=== PATIENT | female | born 1950 | race Caucasian/White ===

== ENCOUNTER 2017-08-24 08:44 | Outpatient (CLI) | payer MEDICARE, MEDICAID | END 2017-08-24 08:45 | disposition home or self-care (01) | LOC: BICULT 08:44 | PROVIDERS: ATTEND Internal Medicine | DX: Z12.31 Encounter for screening mammogram for malignant neoplasm of breast (principal); E04.1 Nontoxic single thyroid nodule | CPT/HCPCS: 76536; 77063 ==

== ENCOUNTER 2017-11-13 11:15 | Outpatient (CLI) | payer MEDICARE, MEDICAID ==
[2017-11-13] MEDS ORDERED: ISOVUE-370 76%-LOCM 1 ML ONE (12:48)
== END 2017-11-13 11:16 | disposition home or self-care (01) ==
LOC: BICCT 11:15
PROVIDERS: ATTEND Internal Medicine Hematology & Oncology
DX: C49.4 Malignant neoplasm of connective and soft tissue of abdomen (principal); K76.89 Other specified diseases of liver; N28.1 Cyst of kidney, acquired; D73.4 Cyst of spleen; E04.2 Nontoxic multinodular goiter
CPT/HCPCS: 71260; 74177

== ENCOUNTER 2018-02-25 17:07 | Emergency (ER) | payer MEDICARE, MEDICAID ==
[2018-02-25 17:47] LABS: #Eosinphils 0.2 thou/uL (0.0-0.7); #Lymphocytes 1.5 thou/uL (1.20-3.40); #Monocytes 0.8 thou/uL (0.11-0.59); #Neutrophils 4.8 thou/uL (1.40-6.50); %Basophils 0.3 % (0.0-1.0); %Eosinophils 2.4 % (0.0-10.0); %Lymphocytes 20.9 % (21.0-51.0); %Monocytes 10.9 % (0.0-10.0); %Neutrophils 65.4 % (42.0-75.0); Hemoglobin 11.1 g/dL (12.0-16.0); Mean Corpuscular HGB CONC 36.3 g/dL (32.0-36.0); Mean Corpuscular Hemoglobin 33.8 pg (27.0-31.0); Mean Platelet Volume 8.3 fL (7.4-10.4); Platelet Count 119 thou/uL (130-400); RBC Distribution Width 11.5 % (11.5-14.5); Red Blood Cell (RBC) Count 3.27 mill/uL (4.20-5.40); White Blood Cell (WBC) Count 7.3 thou/uL (4.8-10.8)
[2018-02-25 18:02] LABS: ALT (SGPT) 21 U/L (8-55); AST (SGOT) 23 U/L (5-34); Alkaline Phosphatase 116 U/L (40-150); Anion Gap 13 mmol/L (10-20); BUN (Urea Nitrogen) 27 mg/dL (9.8-20.1); Bilirubin, Total 0.4 mg/dL (0.2-1.2); Calc. Creatinine Clearance 0 mL/min (70-130); Calcium 9.2 mg/dL (7.8-10.44); Carbon Dioxide 24 mmol/L (23-31); Chloride 108 mmol/L (98-107); Estimated GFR-MDRD 44; Globulin 2.6 g/dL (2.4-3.5); Glucose 192 mg/dL (80-115); Potassium 3.8 mmol/L (3.5-5.1); Protein, Total 6.6 g/dL (6.0-8.3); Sodium 141 mmol/L (136-145)
[2018-02-25 18:27] LABS: Bilirubin Negative (Negative); Blood, Urine Moderate (Negative); Glucose, Urine (Dipstick) 250 mg/dL (Negative); Leukocyte Negative (Negative); Nitrite Negative (Negative); Protein, Urine (Dipstick) 100 mg/dL (Neg-Trace); Urobilinogen 0.2 mg/dL (0.2-1.0); pH, Urine 5.5 (5.0-9.0)
[2018-02-25 18:32] LABS: Specific Gravity, Urine 1.029 (1.002-1.036)
[2018-02-25 18:33] LABS: Clarity Clear (Clear)
[2018-02-25 18:43] LABS: Bacteria/HPF Rare-Few HPF (None Seen); RBC/HPF 0-3 HPF (0-3); Squamous Epithelial 0-3 HPF (0-3); WBC/HPF 0-3 HPF (0-3)
[2018-02-25 18:44] LABS: Crystals/HPF 1+ CA OXALATE HPF (Negative); Hyaline Casts/LPF 0-3 HYALINE CAST LPF (0-3 Hyaline)
--- NOTE | 2018-02-25 18:53 | CT ---
CT HEAD WITHOUT CONTRAST: INDICATIONS: Dizziness. History of gastric cancer. Headaches. COMPARISON: Head CT of 03/20/2015. TECHNIQUE: Multiple axial tomograms obtained through the head without IV enhancement. FINDINGS: The ventricles remain normal in size and position and appear unchanged from the prior exam. Mild cor tical volume loss appears stable. There is no evidence of intracranial mass or hemorrhage. Mild chr onic ischemic white matter changes are seen. No evidence of acute cortical infarct. IMPRESSION: No acute process identified. POS: [facility]
[2018-02-25 19:07] LABS: CKMB 3.4 ng/mL (0-6.6); Troponin I Less than 0.010 ng/mL (< 0.028)
--- NOTE | 2018-02-25 19:39 | RAD ---
PORTABLE CHEST: HISTORY: Dizziness. FINDINGS: The lungs are clear. The heart and mediastinum are unremarkable. IMPRESSION: No acute abnormality identified. POS: [facility]
== END 2018-02-25 21:45 | disposition home or self-care (01) ==
LOC: ERS 17:07
DX: R42 Dizziness and giddiness (principal); E11.9 Type 2 diabetes mellitus without complications; E78.5 Hyperlipidemia, unspecified; F32.9 Major depressive disorder, single episode, unspecified; I10 Essential (primary) hypertension; I25.10 Atherosclerotic heart disease of native coronary artery without angina pectoris; Z79.4 Long term (current) use of insulin; Z79.899 Other long term (current) drug therapy; Z79.82 Long term (current) use of aspirin; Z85.00 Personal history of malignant neoplasm of unspecified digestive organ
CPT/HCPCS: 36415; 70450; 71045; 80053; 81003; 81015; 82553; 84484; 85025; 93005

== ENCOUNTER 2018-05-14 07:46 | Outpatient (CLI) | payer MEDICARE, MEDICAID | END 2018-05-14 07:47 | disposition home or self-care (01) | LOC: BICCT 07:46 | PROVIDERS: ATTEND Internal Medicine Hematology & Oncology | DX: C49.4 Malignant neoplasm of connective and soft tissue of abdomen (principal); R91.8 Other nonspecific abnormal finding of lung field; K76.89 Other specified diseases of liver; N28.1 Cyst of kidney, acquired; E04.2 Nontoxic multinodular goiter | CPT/HCPCS: 71260; 74177; 82565 ==

== ENCOUNTER 2018-07-19 11:31 | Outpatient (CLI) | payer MEDICARE, MEDICAID ==
--- NOTE | 2018-07-19 14:24 | RAD ---
ABDOMEN TWO VIEWS: History: Abdominal pain. FINDINGS/IMPRESSION: The bowel gas pattern is unremarkable. No free air or differential fluid levels are seen. There are d egenerative changes in the spine. No suspicious calcifications identified. POS: [facility]
== END 2018-07-19 11:32 | disposition home or self-care (01) ==
LOC: BICRAD 11:31
PROVIDERS: ATTEND Internal Medicine
DX: R10.84 Generalized abdominal pain (principal); M47.899 Other spondylosis, site unspecified
CPT/HCPCS: 36415; 74019; 80053; 80061; 81001; 82306; 83540; 85025

== ENCOUNTER 2018-10-23 07:32 | Outpatient (CLI) | payer MEDICARE, MEDICAID ==
--- NOTE | 2018-10-23 09:22 | CT ---
CT OF CHEST, ABDOMEN, AND PELVIS PERFORMED WITH INTRAVENOUS CONTRAST ENHANCEMENT: Comparison: 05-14-18, 11-13-17, 06-26-17 History: Patient is status post GI stromal tumor removal and has been on chemotherapy. Follow up. FINDINGS: There is a continued progression of the predominately ground glass parenchymal changes seen in both l ower lobes with some changes in the region of the lingula. The changes have not increased in size but overall density of the parenchymal change, particularly in the posterior basal segment has continued to gradually increase. There is no discrete nodule associated with these findings. There is a calcif ied granuloma in the left lung base. There is no significant mediastinal, hilar, or axillary abnormality. Bilateral thyroid nodules are de monstrated, some of which are densely calcified. There are coronary artery calcifications present. CT ABDOMEN PERFORMED WITH CONTRAST ENHANCEMENT: Hepatic cysts are again identified. The spleen and pancreas regions are unremarkable. The gallbladder is mildly distended. Right and left adrenal glands and right and left kidneys are normal in size. Hypodense lesion measuri ng approximately 1.5 cm in size along the medial aspect of the left kidney is stable. There is a seco nd smaller subcentimeter lesion which does not definitely fulfill criteria for cyst but it is also un changed in size, probably smaller complex cyst. Possibly hemorrhagic in nature. There is no significa nt periaortic or mesenteric adenopathy noted. The inferior vena cava has a slightly collapsed appeara nce. I do not know if this is of any significance. I do not see any collateralization of flow. CT PELVIS PERFORMED WITH CONTRAST ENHANCEMENT: There is some sigmoid diverticulosis noted. No significant pelvic lymphadenopathy. Review of osseous structures show arthritic changes of the spine and hips. No lytic or blastic bony c hange. IMPRESSION: 1. Continued slight progression to the predominately ground glass nodularity in both lower lobes. It appears to be coalescing along the medial basilar segments of both lower lobes. There is no pulmonary nodules associated with this or any solid component. It may be the sequellae of treatment. 2. Stable hypodensities involving the liver and kidneys. 3. Sigmoid diverticulosis. 4. Thyroid nodules. POS: [facility]
[2018-10-23] MEDS ORDERED: Iopamidol 370 76% 100 ML VIAL ONE (10:19)
== END 2018-10-23 07:33 | disposition home or self-care (01) ==
LOC: BICCT 07:32
PROVIDERS: ATTEND Internal Medicine Hematology & Oncology
DX: C49.4 Malignant neoplasm of connective and soft tissue of abdomen (principal); R91.8 Other nonspecific abnormal finding of lung field; K76.89 Other specified diseases of liver; N28.9 Disorder of kidney and ureter, unspecified; K57.30 Diverticulosis of large intestine without perforation or abscess without bleeding; E04.1 Nontoxic single thyroid nodule
CPT/HCPCS: 71260; 74177

== ENCOUNTER 2019-02-12 11:16 | Emergency (ER) | payer MEDICARE, MEDICAID ==
[2019-02-12] MEDS ORDERED: Acetaminophen 500 MG TAB ONE (12:21)
--- NOTE | 2019-02-12 12:59 | CT ---
CT BRAIN WITHOUT CONTRAST: HISTORY:Injury, fall, headache COMPARISON:02/25/2018 FINDINGS: There are foci of decreased attenuation in the periventricular white matter, consistent with chronic small vessel ischemic disease. No evidence of acute infarct, hemorrhage, midline shift or abnormal extra-axial fluid collections is seen. The ventricular size is appropriate and the basilar cisterns are patent. The bony calvarium is intact. The mastoid air cells are well aerated. There is fluid in the left maxillary sinus. IMPRESSION: No CT evidence of acute intracranial process.
--- NOTE | 2019-02-12 13:42 | RAD ---
LEFT KNEE 4 VIEWS: Date: 02/12/19 HISTORY: Injury, left knee pain. FINDINGS/IMPRESSION: Degenerative changes are present. No acute fracture or dislocation is identified. POS: [facility]
--- NOTE | 2019-02-12 13:43 | RAD ---
LEFT SHOULDER 3 VIEWS: Date: 02/12/19 HISTORY: Pain. Injury. Fall. FINDINGS: Glenohumeral joint space is preserved. No fracture or dislocation. There are degenerative changes of the acromioclavicular joint space. Visualized left ribs appear to be intact. IMPRESSION: 1. No fracture or dislocation. 2. Degenerative change of the left acromioclavicular joint space. POS: [facility]
--- NOTE | 2019-02-12 14:12 | CT ---
CT CERVICAL SPINE: Date: 02-12-19 Provided Clinical History: Pain status post injury. FINDINGS: There is no evidence for fracture or traumatic subluxation. Cervical degenerative changes are seen. V ascular calcifications noted. Potentially severe stenosis involving left common carotid artery. No pr evertebral soft tissue swelling apparent. The visualized lung apices appear clear. IMPRESSION: 1. No evidence for fracture or traumatic subluxation. 2. Potentially severe calcified stenosis involving the left common carotid artery. Consider correlati on with follow up nonemergent CT angiography. POS: [facility]
== END 2019-02-12 15:00 | disposition home or self-care (01) ==
LOC: ERS 11:16
DX: S80.02XA Contusion of left knee, initial encounter (principal); S40.012A Contusion of left shoulder, initial encounter; S09.90XA Unspecified injury of head, initial encounter; I25.10 Atherosclerotic heart disease of native coronary artery without angina pectoris; E78.5 Hyperlipidemia, unspecified; I10 Essential (primary) hypertension; F32.9 Major depressive disorder, single episode, unspecified; Z79.899 Other long term (current) drug therapy; Z79.82 Long term (current) use of aspirin; W19.XXXA Unspecified fall, initial encounter
CPT/HCPCS: 70450; 72125; 83630; 87324; 87449

== ENCOUNTER 2019-04-21 07:26 | Outpatient (CLI) | payer MEDICARE, MEDICAID ==
--- NOTE | 2019-04-21 09:15 | CT ---
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 COMPARISON: 10/23/2018. FINDINGS: Small stable thyroid nodules. Stable diffuse groundglass opacity changes in the right and left lower lobes without distinct nodule. No mediastinal mass or adenopathy. No pleural effusion. 3 vessel coronary artery calcific disease. Stable right and left lobe of liver cysts. Small hiatal hernia. Stable bilateral renal cysts. No evid ence of retroperitoneal adenopathy abnormal fluid collection or other acute process. Colonic diverticulosis without acute diverticulitis. IMPRESSION: Stable diffuse groundglass opacity changes in the right and left lower lobes without distinct nodule. Stable findings from prior study. No new metastasis. Transcribed Date/Time: 04/21/2019 9:26 AM
[2019-04-21] MEDS ORDERED: ISOVUE-370 76%-LOCM 1 ML ONE (14:33)
== END 2019-04-21 07:27 | disposition home or self-care (01) ==
LOC: BICCT 07:26
PROVIDERS: ATTEND Internal Medicine Hematology & Oncology
DX: C49.4 Malignant neoplasm of connective and soft tissue of abdomen (principal); R91.8 Other nonspecific abnormal finding of lung field
CPT/HCPCS: 71260; 74177; 82565; Q9966

== ENCOUNTER 2019-08-12 14:40 | Outpatient (CLI) | payer MEDICARE, MEDICAID ==
--- NOTE | 2019-08-12 15:32 | ULT ---
THYROID ULTRASOUND INDICATION: Multinodular goiter. TECHNIQUE: Grayscale and color Doppler images were obtained of the thyroid gland. COMPARISON: None. FINDINGS: Right thyroid lobe: The right thyroid lobe measures 4.8 x 2.4 x 1.9 cm. There is a 4 mm curvilinear c alcification seen within the right mid thyroid gland. There are multiple nodules within the right thyroid gland many of which are spongiform in appearance. There is a 1.4 x 1 cm spongiform nodule wit hin the mid right thyroid lobe. There is a predominantly cystic nodule measuring 9 mm within the medial right thyroid lobe. There is a 1.5 cm spongiform nodule within the mid right thyroid lobe. The re is a partially cystic, partially solid nodule within the posterior right mid lobe measuring 1 x 1 cm. There is a 1 cm spongiform nodule within the inferior pole of the right thyroid lobe. Thyroid isthmus: The thyroid isthmus measures 0.38 cm. There is a 0.7 x 0.8 cm partially cystic nodul e within the right thyroid isthmus. Left thyroid lobe: The left thyroid lobe measures 4.6 x 2.2 x 1.9 cm. There are numerous nodules with in the left thyroid lobe, many of which are spongiform in appearance. There is a hyperechoic solid nodule with curvilinear calcifications involving inferior pole left thyroid lobe measuring 9.6 x 9.1 mm. IMPRESSION: Multinodular goiter. Many of the nodules are benign either as TIRADS 1 or TIRADS 2 lesions. No suspic ious lesion is seen within the right thyroid lobe or the thyroid isthmus. There is a hyperechoic solid nodule with curvilinear calcifications involving the inferior pole of left thyroid lobe. This i s consistent with a TIRADS 4 lesion. A followup ultrasound in one year to reevaluate this nodule is recommended. Transcribed Date/Time: 08/12/2019 3:36 PM
== END 2019-08-12 14:41 | disposition home or self-care (01) ==
LOC: BICULT 14:40
PROVIDERS: ATTEND Internal Medicine
DX: E04.2 Nontoxic multinodular goiter (principal)
CPT/HCPCS: 76536

== ENCOUNTER 2019-10-22 08:34 | Outpatient (CLI) | payer MEDICARE, MEDICAID ==
--- NOTE | 2019-10-22 10:17 | CT ---
CT OF CHEST AND ABDOMEN AND PELVIS PERFORMED WITH IV CONTRAST ENHANCEMENT: Date: 10/22/2019 HISTORY: Follow-up of a GI stromal tumor that was removed. Patient has been on chemotherapy. COMPARISON: 04/21/2019 study. FINDINGS: CT CHEST: The lungs show a stable appearance to ground-glass nodularity in both lung bases. No discrete pulmona ry nodules are identified. Stable thyroid nodules are seen. There is no significant mediastinal, hilar, or axillary lymphadenopa thy. Coronary calcifications are present. CT ABDOMEN: CT abdomen performed with contrast enhancement. A small hypodensity within the right lobe of the live r is statistically most likely a cyst. It is stable. The spleen, pancreas, and gallbladder regions ap pear unremarkable. Right and left adrenal glands are normal. Right and left kidneys are normal in size. Two hypodensitie s involving the right kidney are unchanged, probably cysts. There is no significant periaortic or mes enteric lymphadenopathy noted. Fairly dense atherosclerotic change of the aorta is seen. CT PELVIS: CT pelvis was performed with contrast enhancement. Sigmoid diverticulosis is noted. No adenopathy, ma ss, or free fluid. IMPRESSION: 1. Stable overall exam. 2. Unchanged ground-glass nodularity to both lung bases. 3. Small hepatic and renal cysts. 4. Sigmoid diverticulosis. POS: [facility]
[2019-10-22] MEDS ORDERED: Iopamidol-370 76% 500 ML 1 ML ONE (12:51)
== END 2019-10-22 08:35 | disposition home or self-care (01) ==
LOC: BICCT 08:34
PROVIDERS: ATTEND Internal Medicine Hematology & Oncology
DX: C49.4 Malignant neoplasm of connective and soft tissue of abdomen (principal); K57.30 Diverticulosis of large intestine without perforation or abscess without bleeding; N28.1 Cyst of kidney, acquired; R91.8 Other nonspecific abnormal finding of lung field
CPT/HCPCS: 71260; 74177; 82565; Q9967

== ENCOUNTER 2019-10-25 18:30 | Emergency (ER) | payer MEDICARE, MEDICAID ==
[2019-10-25] MEDS ORDERED: Proparacaine 0.5% Opth 15 ML BOT ONE (19:25)
[2019-10-25] MEDS ORDERED: Fluorescein Opthalmic Strip ONE (19:25)
[2019-10-25] MEDS ORDERED: HYDROcodone/Acetaminophen 5/325 mg Tablet ONE (19:44)
== END 2019-10-25 20:24 | disposition home or self-care (01) ==
LOC: ERS 18:30
DX: H57.12 Ocular pain, left eye (principal); H02.846 Edema of left eye, unspecified eyelid; H57.89 Other specified disorders of eye and adnexa; I25.10 Atherosclerotic heart disease of native coronary artery without angina pectoris; E11.9 Type 2 diabetes mellitus without complications; E78.5 Hyperlipidemia, unspecified; E78.00 Pure hypercholesterolemia, unspecified; I10 Essential (primary) hypertension; F32.9 Major depressive disorder, single episode, unspecified; Z79.4 Long term (current) use of insulin; Z79.82 Long term (current) use of aspirin; Z79.899 Other long term (current) drug therapy
CPT/HCPCS: 99283

== ENCOUNTER 2019-10-29 15:49 | Day surgery (SDC) | payer MEDICARE, MEDICAID ==
[~2019-10-29 15:49] MED LIST: Atropine Sulfate 0.4 mg/1 ml Vial ONE; Bupivacaine PF 0.75% SDV 10 ML ONE; EPHEDRINE 25 MG/5 ML SYRINGE ONE; EPINEPHrine 0.3 MG in Ophthalmic Irrigation Solution 500 ML IRR SCH; Lidocaine 1% PF 5 ML VIAL ONE; Lidocaine 4% PF 5 ML AMP ONE; Maxitrol 0.1% Opth Oint 3.5 GM TUBE ONE; Ondansetron PF 4 MG/2 ML Vial ONE; PROPOFOL 200 MG/20 ML VIAL ONE; Triamcinolone 40 MG/ML VIAL ONE; Vancomycin HCl 100 MG, Sodium Chloride 0.9% 10 ML TOP SCH
[2019-10-29] MEDS ORDERED: Fentanyl 100 MCG/2 ML VIAL ONE (16:41)
[2019-10-29] MEDS ORDERED: Cyclopentolate 1% Opth Drop 2 ML BOT ONE (16:59)
[2019-10-29] MEDS ORDERED: Phenylephrine 2.5% Ophth Soln 5 ML BOT ONE (16:59)
--- NOTE | 2019-10-30 01:30 | OP ---
DATE OF PROCEDURE: 10/29/2019 PREOPERATIVE DIAGNOSIS: Acute endophthalmitis, left eye. POSTOPERATIVE DIAGNOSIS: Acute endophthalmitis, left eye. PROCEDURE PERFORMED: 1. 25-gauge pars plana vitrectomy, left eye. 2. Anterior chamber washout, left eye. 3. Vancomycin 1 mg per 0.1 mL, 0.1 mL administered, left eye. 4. Ceftazidime 2.2 mg per 0.1 mL, 0.1 mL administered, left eye. ESTIMATED BLOOD LOSS: None. SPECIMENS REMOVED: None. COMPLICATIONS: None. ANESTHESIA: LMA with subtenon's block. SUMMARY OF THE OPERATION: The patient was identified in the preoperative holding area, where the correct eye being the right eye was marked for surgery. The patient was taken to the operating room, where general anesthesia was induced. The left eye was prepped and draped in the usual sterile ophthalmic fashion for surgery. A wire-clip lid speculum was placed. A superior 15-degree paracentesis was made to gain access to the anterior chamber. An anterior chamber washout was performed with BSS irrigating the hypopyon and some of the pupillary membrane. This allowed for improved visualization of the posterior segment. A standard 25-gauge pars plana vitrectomy platform was fashioned with a 6 mm infusion. The cannulas were inserted 4 mm posterior to the limbus. The infusion was noted to be in the vitreous cavity prior to area not turned on quite yet. A pure vitreous sample was obtained followed by immediate opening and infusion. A careful core vitrectomy was performed staying anteriorly and moving posteriorly progressively as the visualization continually improved. A peripheral shave vitrectomy was performed to the safest extent possible. Due to poor visualization, the complete vitrectomy was not able to be performed with induction of posterior vitreous detachment. The retina was noted to be flat and attached 360 degrees. The cannulas were sequentially removed and all sclerotomy was noted to be watertight. Vancomycin 1 mg per 0.1 mL, 1 mL was administered as well as ceftazidime 2.2 mg per 0.1 mL, 0.1 mL administered. An inferonasal subtenon's block was administered. Block consisted of 1:1 ratio of 4% lidocaine, 0.75% Marcaine; a total of 5 mL was administered. The conjunctiva was closed with an 8-0 Vicryl suture. The wire-clip lid speculum was removed, followed by application of TobraDex ophthalmic ointment and a light patch and shield. The patient tolerated the procedure well and was taken to the outpatient recovery in good condition. Job ID: [id number]
== END 2019-10-29 20:09 | disposition home or self-care (01) ==
LOC: SDC 15:49
PROVIDERS: ATTEND Ophthalmology Retina Specialist
PROC: 08B53ZZ Excision of Left Vitreous, Percutaneous Approach (ICD-10-PCS; principal; 2019-10-29)
DX: H44.002 Unspecified purulent endophthalmitis, left eye (principal); Z88.8 Allergy status to other drugs, medicaments and biological substances; Z91.010 Allergy to peanuts; Z91.040 Latex allergy status; Z91.048 Other nonmedicinal substance allergy status
CPT/HCPCS: 36416; 87070; 87205; 93005; 93010; J0171; J0713; J3010; J3370

== ENCOUNTER 2020-03-07 06:16 | Emergency (ER) | payer MEDICARE, MEDICAID ==
[2020-03-07] MEDS ORDERED: Metoclopramide HCl 10 MG/2 ML VIAL ONE (06:28)
--- NOTE | 2020-03-07 09:34 | CT ---
PRELIMINARY REPORT/[facility]/AFTER HOURS PROCEDURE CT HEAD WITHOUT INTRAVENOUS CONTRAST: CLINICAL HISTORY: BATES, left sided - started 2 hours ago, has occurred before blocked carotid artery history; denies janis rry vision. TECHNIQUE: Axial computed tomography images of the head/brain without intravenous contrast. COMPARISON: CT\SR - CT BRAIN WO CON - 02/12/2019 12:51 PM CDT. FINDINGS: BRAIN: No acute intraparenchymal hemorrhage. No mass lesion. No CT evidence for acute territorial inf arct. No midline shift or extra-axial collection. Chronic microvascular ischemic disease is seen. VENTRICLES: No hydrocephalus. ORBITS: The orbits are unremarkable. SINUSES AND MASTOIDS: The paranasal sinuses and mastoid air cells are clear. SOFT TISSUES: No significant facial or scalp soft tissue swelling evident. No radiopaque foreign body is seen. BONES: No acute skull fracture. IMPRESSION: No acute intracranial abnormality. ELECTRONICALLY SIGNED BY: Sonu Benavides MD Mar 07, 2020 6:58:44 AM CDT This report is intended for review by the ordering physician only, in accordance of law. If you recei ve this report in error, please call [facility] at [phone]. FINAL REPORT CT BRAIN: HISTORY: Headache on the left side that started two hours ago. COMPARISON: 02/12/2019 TECHNIQUE: Multiple contiguous axial images were obtained in a CT of the brain without contrast. FINDINGS: There are scattered hypodensities in the subcortical and periventricular white matter, likely seconda ry to small vessel ischemic disease. No large confluent infarction is seen. There is no evidence of h ydrocephalus, intracranial hemorrhage or extraaxial fluid collection. The calvarium and overlying soft tissues are unremarkable. The visualized paranasal sinuses and masto id air cells are well aerated. IMPRESSION: No evidence of acute intracranial abnormality. CODE QA/CODE QV POS: [facility]
== END 2020-03-07 08:08 | disposition home or self-care (01) ==
LOC: ERS 06:16
DX: R51 Headache (principal); E78.5 Hyperlipidemia, unspecified; E11.9 Type 2 diabetes mellitus without complications; I25.10 Atherosclerotic heart disease of native coronary artery without angina pectoris; E78.00 Pure hypercholesterolemia, unspecified; I10 Essential (primary) hypertension; F32.9 Major depressive disorder, single episode, unspecified; Z79.899 Other long term (current) drug therapy; Z79.4 Long term (current) use of insulin; Z79.82 Long term (current) use of aspirin
CPT/HCPCS: 70450; 96365; J2765

== ENCOUNTER 2020-03-12 12:37 | Outpatient (CLI) | payer MEDICARE, MEDICAID ==
[~2020-03-12 12:37] MED LIST changes: -Atropine Sulfate 0.4 mg/1 ml Vial ONE; -Bupivacaine PF 0.75% SDV 10 ML ONE; -EPHEDRINE 25 MG/5 ML SYRINGE ONE; -EPINEPHrine 0.3 MG in Ophthalmic Irrigation Solution 500 ML IRR SCH; +Iopamidol-370 76% 500 ML 1 ML ONE; -Lidocaine 1% PF 5 ML VIAL ONE; -Lidocaine 4% PF 5 ML AMP ONE; -Maxitrol 0.1% Opth Oint 3.5 GM TUBE ONE; -Ondansetron PF 4 MG/2 ML Vial ONE; -PROPOFOL 200 MG/20 ML VIAL ONE; -Triamcinolone 40 MG/ML VIAL ONE; -Vancomycin HCl 100 MG, Sodium Chloride 0.9% 10 ML TOP SCH
--- NOTE | 2020-03-12 16:34 | CT ---
EXAM: CHEST, ABDOMEN AND PELVIC CT SCAN WITH IV CONTRAST: 03/12/20 HISTORY: Stromal tumor, malignant neoplasm of connective and soft tissue of abdomen. COMPARISON: 10/22/19. FINDINGS: no mediastinal mass or adenopathy. No pleural effusion. There are some stable ground glass opacity ch anges in both lung bases. Stable thyroid nodules. No pleural effusion or pericardial effusion. Stable small hypodensity in the right lobe of the liver as well as some small renal cysts. No evidenc e for liver metastasis. Gallbladder, pancreas, spleen, adrenal glands are unremarkable. No renal calc ulus or acute obstruction. No evidence for adenopathy, abscess, or abnormal fluid collection in th e abdomen or pelvis. IMPRESSION: Stable findings. Stable ground glass opacity changes in both lung basis with small hepatic and renal cysts. No evidence for metastasis. POS: [facility]
== END 2020-03-12 12:38 | disposition home or self-care (01) ==
LOC: BICCT 12:37
PROVIDERS: ATTEND Internal Medicine Hematology & Oncology
DX: C49.4 Malignant neoplasm of connective and soft tissue of abdomen (principal); N28.1 Cyst of kidney, acquired; K76.89 Other specified diseases of liver; R91.8 Other nonspecific abnormal finding of lung field
CPT/HCPCS: 71260; 74177; Q9967

== ENCOUNTER 2020-07-19 09:13 | Outpatient (CLI) | payer MEDICARE, MEDICAID ==
--- NOTE | 2020-07-19 10:27 | ULT ---
Exam: Thyroid ultrasound COMPARISON: 08/12/2019 HISTORY: Multiple thyroid nodules FINDINGS: Thyroid isthmus: 0.32 cm Right thyroid lobe: 1.8 x 2.2 x 4.7 cm Left thyroid lobe: 2.1 x 2.3 x 4.9 cm Thyroid nodules: There are innumerous nodules throughout the thyroid gland. Right thyroid lobe: 1.4 x 1.0 x 1.2 cm predominantly solid nodule in the mid thyroid lobe. 1.0 x 0.9 x 1.0 cm solid nodule in the lower pole of the right thyroid lobe. Left thyroid lobe: 1.5 x 0.8 x 1.5 cm solid nodule in the upper pole. 1.3 x 1.2 x 1.3 cm solid nodule in the lower pole. Mixed solid and cystic nodule in the lower pole measures 1.5 x 1.3 x 2.2 cm. 0.8 x 0.8 x 0.9 cm solid nodule with incomplete peripheral calcification. IMPRESSION: Multiple solid nodules throughout the thyroid gland. TI-RADS calculator score mildly suspicious. Follow-up imaging in one year is recommended. Transcribed Date/Time: 07/19/2020 12:24 PM
== END 2020-07-19 09:14 | disposition home or self-care (01) ==
LOC: BICULT 09:13
PROVIDERS: ATTEND Otolaryngology Plastic Surgery within the Head & Neck
DX: E04.2 Nontoxic multinodular goiter (principal)
CPT/HCPCS: 76536

== ENCOUNTER 2020-10-08 07:15 | Outpatient (CLI) | payer MEDICARE, MEDICAID ==
--- NOTE | 2020-10-08 10:16 | CT ---
CT CHEST AND ABDOMEN AND PELVIS WITH IV CONTRAST: Oral contrast was administered. Multiplanar reconstruction. INDICATION: Stromal tumor, malignant neoplasm of connective and soft tissue abdomen. Followup. COMPARISON: Comparison is made to CT chest, abdomen, and pelvis 03/12/2020. FINDINGS: CT CHEST: The lung walker again show hazy ground-glass opacities in both lung bases and also in the lingular se gment of the left upper lobe. These findings were present previously and do not appear significantly changed. The mediastinum is unremarkable with no evidence of adenopathy. The esophagus is slightly dilated in the mid chest with air and swallowed contrast present. No signi ficant diaphragmatic hernia is seen. Osseous structures are unremarkable. Vertebral bodies maintain height and alignment. IMPRESSION: Stable CT chest findings. The ground-glass opacities in posterior lungs appear stable. CT ABDOMEN AND PELVIS: Review of the liver again shows a small cyst in the mid right lobe measuring approximately 8 mm. Ano ther small low-density focus in the left lobe, probably cystic, is stable. The patient has a promine nt left lobe which extends over to the left abdomen and there is an 8 mm cyst in the lateral left lob e which is stable. No interval change in appearance of the liver. The spleen and pancreas are unremarkable. Stomach and duodenum unremarkable. Gallbladder mildly distended but unchanged in appearance from prior exam. Adrenal glands and kidneys unremarkable. There are right renal cysts which are unchanged. The small calculus in the upper pole collecting structures of the left kidney was noted previously and is unch anged measuring approximately 3 mm. Aorta is densely calcified but normal caliber. Small and large bowel loops unremarkable. Diverticulosis of the sigmoid colon. Images through the pelvis show calcifications within the uterine fundus, unchanged. Urinary bladder unremarkable. No evidence of adenopathy. Osseous structures unremarkable. Prominent posterior disk bulge with calcification at T11-T12 disk space compresses the thecal sac and results in central canal stenosis. 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 IMPRESSION: Stable CT abdomen and pelvis. No evidence of metastatic disease. Stable findings are described abov e. POS: [facility]
[2020-10-08] MEDS ORDERED: Iopamidol-370 76% 500 ML 1 ML ONE (14:52)
== END 2020-10-08 07:16 | disposition home or self-care (01) ==
LOC: BICCT 07:15
PROVIDERS: ATTEND Internal Medicine Hematology & Oncology
DX: C49.4 Malignant neoplasm of connective and soft tissue of abdomen (principal); R91.8 Other nonspecific abnormal finding of lung field
CPT/HCPCS: 71260; 74177

== ENCOUNTER 2020-10-08 17:49 | Observation (INO) | payer MEDICARE, MEDICAID ==
[2020-10-08 18:46] LABS: #Eosinphils 0.2 thou/uL (0.0-0.7); #Lymphocytes 1.6 thou/uL (1.20-3.40); #Monocytes 0.5 thou/uL (0.11-0.59); %Basophils 0.5 % (0.0-1.0); %Eosinophils 3.8 % (0.0-10.0); %Lymphocytes 24.8 % (21.0-51.0); %Monocytes 8.5 % (0.0-10.0); %Neutrophils 62.4 % (42.0-75.0); Hemoglobin 10.3 g/dL (12.0-16.0); Mean Corpuscular HGB CONC 35.1 g/dL (32.0-36.0); Mean Corpuscular Hemoglobin 33.3 pg (27.0-31.0); Mean Corpuscular Volume 95.1 fL (78.0-98.0); Mean Platelet Volume 9.5 fL (7.4-10.4); Platelet Count 97 thou/uL (130-400); RBC Distribution Width 12.4 % (11.5-14.5); White Blood Cell (WBC) Count 6.4 thou/uL (4.8-10.8)
[2020-10-08 19:03] LABS: ALT (SGPT) 17 U/L (8-55); AST (SGOT) 23 U/L (5-34); Alkaline Phosphatase 107 U/L (40-110); Anion Gap 14 mmol/L (10-20); BUN (Urea Nitrogen) 25 mg/dL (9.8-20.1); Bilirubin, Total 0.5 mg/dL (0.2-1.2); CK (CPK) 142 U/L (29-168); Calc. Creatinine Clearance 0 mL/min (70-130); Calcium 8.6 mg/dL (7.8-10.44); Carbon Dioxide 27 mmol/L (23-31); Chloride 105 mmol/L (98-107); Globulin 2.8 g/dL (2.4-3.5); Glucose 168 mg/dL (80-115); Lipase 31 U/L (8-78); Protein, Total 6.8 g/dL (5.8-8.1); Sodium 143 mmol/L (136-145)
[2020-10-08 19:07] LABS: Potassium 2.9 mmol/L (3.5-5.1)
[2020-10-08] MEDS ORDERED: cefTRIAXone\\ROCEPHIN 1 GM VIAL ONE (21:07)
[2020-10-08] MEDS ORDERED: Azithromycin 500 MG VIAL ONE (21:07)
[2020-10-08 22:05] LABS: Bacteria/HPF None Seen HPF (None Seen); Bilirubin Negative (Negative); Blood, Urine 1+ (Negative); Clarity Clear (Clear); Glucose, Urine (Dipstick) 500 mg/dL (Negative); Ketone, Urine Negative (Negative); Leukocyte Negative Leu/uL (Negative); Nitrite Negative (Negative); Protein, Urine (Dipstick) 100 mg/dL (Neg-Trace); RBC/HPF 0-3 HPF (0-3); Specific Gravity, Urine 1.021 (1.002-1.036); Squamous Epithelial 0-3 HPF (0-3); Urobilinogen Normal mg/dL (Less than 2); WBC/HPF 0-3 HPF (0-3)
[2020-10-08 22:38] LABS: SARS-CoV-2 NAA Rapid Test Not Detected (NotDetected)
[2020-10-08] MEDS ORDERED: Potassium Chloride 20 MEQ TAB ONE (23:45)
[2020-10-09] MEDS ORDERED: Dextrose 50% Abboject 50 ML SYRINGE SLOW IVP PRN (00:39)
[2020-10-09] MEDS ORDERED: Dextrose 5% in Water 1,000 ML IV PRN (00:39)
[2020-10-09 00:41] VITALS: BMI 24.3
[2020-10-09] MEDS ORDERED: hydrALAZINE 20 MG/ML VIAL SLOW IVP PRN (00:51)
[2020-10-09 01:29] LABS: Troponin I 0.031 ng/mL (< 0.028)
[2020-10-09 05:22] LABS: #Eosinphils 0.2 thou/uL (0.0-0.7); #Lymphocytes 1.4 thou/uL (1.20-3.40); #Monocytes 0.5 thou/uL (0.11-0.59); #Neutrophils 4.1 thou/uL (1.40-6.50); %Basophils 0.2 % (0.0-1.0); %Lymphocytes 22.6 % (21.0-51.0); %Monocytes 8.6 % (0.0-10.0); %Neutrophils 65.7 % (42.0-75.0); Hemoglobin 9.5 g/dL (12.0-16.0); Mean Corpuscular HGB CONC 35.6 g/dL (32.0-36.0); Mean Corpuscular Hemoglobin 33.9 pg (27.0-31.0); Mean Corpuscular Volume 95.1 fL (78.0-98.0); Mean Platelet Volume 9.8 fL (7.4-10.4); Platelet Count 85 thou/uL (130-400); RBC Distribution Width 12.4 % (11.5-14.5); Red Blood Cell (RBC) Count 2.82 mill/uL (4.20-5.40); White Blood Cell (WBC) Count 6.2 thou/uL (4.8-10.8)
[2020-10-09 05:47] LABS: Anion Gap 11 mmol/L (10-20); BUN (Urea Nitrogen) 19 mg/dL (9.8-20.1); Calc. Creatinine Clearance 50 mL/min (70-130); Calcium 7.8 mg/dL (7.8-10.44); Carbon Dioxide 26 mmol/L (23-31); Chloride 109 mmol/L (98-107); Glucose 394 mg/dL (80-115); Magnesium 1.6 mg/dL (1.6-2.6); Potassium 3.9 mmol/L (3.5-5.1); Sodium 142 mmol/L (136-145)
[2020-10-09] MEDS: HumaLOG 300 UNITS/3 ML VIAL SC PRN ×2 (06:23→16:14)
[2020-10-09] MEDS ORDERED: Nitroglycerin 0.4 MG TAB (25 Tab Bottle) SL PRN (08:26)
[2020-10-09] MEDS: Pregabalin 75 MG CAP PO SCH ×2 (08:52→16:13)
[2020-10-09] MEDS ORDERED: Fish Oil 1,000 MG CAP PO SCH (09:00)
[2020-10-09] MEDS ORDERED: Magnesium Sulfate 4 GM in Sodium Chloride 0.9% 250 ML 250 ML IVPB SCH (09:00)
[2020-10-09] MEDS ORDERED: Cholecalciferol 1,000 UNITS (25 MCG) TAB PO SCH (09:00)
[2020-10-09] MEDS ORDERED: Enoxaparin Sodium 40 MG/0.4 ML SYRINGE SC SCH (09:00)
[2020-10-09] MEDS ORDERED: Aspirin Chewable 81 MG TAB PO SCH (09:00)
[2020-10-09] MEDS ORDERED: Imatinib Mesylate [Gleevec] 400 MG PO SCH (09:00)
[2020-10-09] MEDS ORDERED: IMATINIB MESYLATE 400 MG PO SCH (09:00)
[2020-10-09] MEDS ORDERED: Docusate 100 MG CAP PO SCH (09:00)
[2020-10-09 10:52] LABS: CKMB 3.6 ng/mL (0-6.6)
[2020-10-09] MEDS ORDERED: ADENOSINE 60 MG/20 ML VIAL ONE (12:55)
[2020-10-09] MEDS ORDERED: Lorazepam 2 MG/ML VIAL SLOW IVP SCH (13:00)
[2020-10-09 16:13] VITALS: BP 155/70; TEMP 97.9
[2020-10-09] MEDS ORDERED: cefTRIAXone\\ROCEPHIN 1 GM in Sodium Chloride 0.9% 100 ML IVPB SCH (21:00)
[2020-10-09] MEDS ORDERED: Atorvastatin Calcium 40 MG TAB PO SCH (21:00)
[2020-10-09] MEDS ORDERED: Azithromycin 500 MG in Sodium Chloride 0.9% 250 ML 250 ML IVPB SCH (22:00)
== END 2020-10-09 18:55 | disposition home or self-care (01) ==
LOC: ERS 17:49 → 2NO 21:17
PROVIDERS: ADMIT Student in an Organized Health Care Education/Training Program; ATTEND Internal Medicine
DX: R07.89 Other chest pain (principal); I25.10 Atherosclerotic heart disease of native coronary artery without angina pectoris; E83.42 Hypomagnesemia; E87.6 Hypokalemia; I12.9 Hypertensive chronic kidney disease with stage 1 through stage 4 chronic kidney disease, or unspecified chronic kidney disease; E11.22 Type 2 diabetes mellitus with diabetic chronic kidney disease; N18.2 Chronic kidney disease, stage 2 (mild); D63.1 Anemia in chronic kidney disease; F41.9 Anxiety disorder, unspecified; E11.40 Type 2 diabetes mellitus with diabetic neuropathy, unspecified; E11.51 Type 2 diabetes mellitus with diabetic peripheral angiopathy without gangrene; E11.621 Type 2 diabetes mellitus with foot ulcer; L97.529 Non-pressure chronic ulcer of other part of left foot with unspecified severity; F32.9 Major depressive disorder, single episode, unspecified; C49.A0 Gastrointestinal stromal tumor, unspecified site; E03.9 Hypothyroidism, unspecified; Z79.4 Long term (current) use of insulin; Z79.82 Long term (current) use of aspirin; Z79.899 Other long term (current) drug therapy; Z91.040 Latex allergy status; Z95.5 Presence of coronary angioplasty implant and graft; Z89.421 Acquired absence of other right toe(s); Z20.822 Contact with and (suspected) exposure to COVID-19
CPT/HCPCS: 0240U; 71045; 71260; 71275; 74177; 78452; 80048; 80053; 82550; 82553; 82962; 83690; 83735 ×2; 84145; 84484 ×4; 85025 ×2; 85379; 87040; 87086; 93005; 93017; 94760 ×2; 96365; 96367; 97139; 99285; A9500; 36415; 36416; 81003; 81015; 96366; 96375; G0378; J0153; J0360; J0456; J0696; J2060; J3475; J7050; Q9967

== ENCOUNTER 2020-10-29 16:26 | Outpatient (CLI) | payer MEDICARE, MEDICAID ==
--- NOTE | 2020-10-29 16:46 | RAD ---
XR Shoulder Lt 3 View STANDARD History: Pain. Fall Comparison: Radiograph 2019. Findings: Mild ossification the posterior superior glenoid labrum. No acute displaced fracture or mal alignment. Moderate degenerative disease left acromioclavicular joint. Ribs are intact. Impression: No acute osseous abnormality.
== END 2020-10-29 16:27 | disposition home or self-care (01) ==
LOC: BICRAD 16:26
PROVIDERS: ATTEND Internal Medicine
DX: M19.90 Unspecified osteoarthritis, unspecified site (principal)

== ENCOUNTER 2021-03-22 08:32 | Outpatient (CLI) | payer MEDICARE, MEDICAID ==
[2021-03-22] MEDS ORDERED: Iopamidol-370 76% 500 ML 1 ML ONE (09:22)
== END 2021-03-22 08:33 | disposition home or self-care (01) ==
LOC: BICCT 08:32
PROVIDERS: ATTEND Internal Medicine Hematology & Oncology
DX: C49.4 Malignant neoplasm of connective and soft tissue of abdomen (principal); N18.9 Chronic kidney disease, unspecified; D63.1 Anemia in chronic kidney disease; D50.8 Other iron deficiency anemias; S22.079A Unspecified fracture of T9-T10 vertebra, initial encounter for closed fracture
CPT/HCPCS: 71260; 74177; Q9967

== ENCOUNTER 2021-05-04 08:17 | Outpatient (CLI) | payer MEDICARE, MEDICAID | END 2021-05-04 08:18 | disposition home or self-care (01) | LOC: BICMAMMO 08:17 | PROVIDERS: ATTEND Internal Medicine | DX: Z12.31 Encounter for screening mammogram for malignant neoplasm of breast (principal); Z13.820 Encounter for screening for osteoporosis; M85.851 Other specified disorders of bone density and structure, right thigh; M85.852 Other specified disorders of bone density and structure, left thigh; Z78.0 Asymptomatic menopausal state; Z80.3 Family history of malignant neoplasm of breast | CPT/HCPCS: 77063; 77067; 77080 ==

== ENCOUNTER 2021-06-07 17:27 | Emergency (ER) | payer OTHER, MEDICARE, MEDICAID ==
[2021-06-07] MEDS ORDERED: Morphine 4 MG/ML VIAL ONE (19:55)
[2021-06-07] MEDS ORDERED: Ondansetron PF 4 MG/2 ML Vial ONE (19:55)
== END 2021-06-07 20:40 | disposition home or self-care (01) ==
LOC: ERS 17:27
DX: S09.90XA Unspecified injury of head, initial encounter (principal); E11.9 Type 2 diabetes mellitus without complications; I25.10 Atherosclerotic heart disease of native coronary artery without angina pectoris; E78.5 Hyperlipidemia, unspecified; E78.00 Pure hypercholesterolemia, unspecified; I10 Essential (primary) hypertension; J44.9 Chronic obstructive pulmonary disease, unspecified; Z79.82 Long term (current) use of aspirin; Z79.899 Other long term (current) drug therapy; Z79.4 Long term (current) use of insulin; Z85.038 Personal history of other malignant neoplasm of large intestine; W18.09XA Striking against other object with subsequent fall, initial encounter; Y92.481 Parking lot as the place of occurrence of the external cause
CPT/HCPCS: 70450; 72125; 93005; 96374; 96375; J2270; J2405

== ENCOUNTER 2021-06-28 15:02 | Outpatient (CLI) | payer MEDICARE, MEDICAID ==
[2021-06-29 00:51] LABS: SARS-CoV-2 PCR by NAA Not Detected (NotDetected)
== END 2021-06-28 15:03 | disposition home or self-care (01) ==
LOC: LABBT 15:02
PROVIDERS: ATTEND Nurse Practitioner Family
DX: Z01.812 Encounter for preprocedural laboratory examination (principal); M54.12 Radiculopathy, cervical region; Z20.822 Contact with and (suspected) exposure to COVID-19
CPT/HCPCS: U0003; U0005

== ENCOUNTER 2021-09-06 12:38 | Outpatient (CLI) | payer MEDICARE, MEDICAID | END 2021-09-06 12:39 | disposition home or self-care (01) | LOC: SCSMRI 12:38 | PROVIDERS: ATTEND Podiatrist | DX: E11.621 Type 2 diabetes mellitus with foot ulcer (principal); L97.516 Non-pressure chronic ulcer of other part of right foot with bone involvement without evidence of necrosis | CPT/HCPCS: 82565 ==

== ENCOUNTER 2021-10-30 07:11 | Observation (INO) | payer MEDICARE, MEDICAID ==
[2021-10-30 08:11] LABS: #Eosinphils 0.1 thou/uL (0.0-0.7); #Lymphocytes 1.6 thou/uL (1.20-3.40); #Monocytes 1.1 thou/uL (0.11-0.59); #Neutrophils 8.8 thou/uL (1.40-6.50); %Basophils 0.3 % (0.0-1.0); %Eosinophils 0.8 % (0.0-10.0); %Lymphocytes 13.7 % (21.0-51.0); %Monocytes 9.7 % (0.0-10.0); %Neutrophils 75.4 % (42.0-75.0); Hemoglobin 9.4 g/dL (12.0-16.0); Mean Corpuscular HGB CONC 33.6 g/dL (32.0-36.0); Mean Corpuscular Hemoglobin 32.3 pg (27.0-31.0); Mean Corpuscular Volume 96.1 fL (78.0-98.0); Mean Platelet Volume 11.1 fL (7.4-10.4); Platelet Count 51 thou/uL (130-400); RBC Distribution Width 13.9 % (11.5-14.5); White Blood Cell (WBC) Count 11.7 thou/uL (4.8-10.8)
[2021-10-30 08:48] LABS: CKMB 4.8 ng/mL (0-6.6)
[2021-10-30 08:49] LABS: ALT (SGPT) 70 U/L (8-55); AST (SGOT) 57 U/L (5-34); Albumin 3.5 g/dL (3.4-4.8); Alkaline Phosphatase 155 U/L (40-110); Anion Gap 15 mmol/L (10-20); BUN (Urea Nitrogen) 62 mg/dL (9.8-20.1); Bilirubin, Total 0.3 mg/dL (0.2-1.2); Calc. Creatinine Clearance 0 mL/min (70-130); Calcium 8.4 mg/dL (7.8-10.44); Carbon Dioxide 28 mmol/L (23-31); Chloride 98 mmol/L (98-107); Globulin 3.2 g/dL (2.4-3.5); Glucose 43 mg/dL (80-115); Magnesium 2.1 mg/dL (1.6-2.6); Phosphorus 5.8 mg/dL (2.3-4.7); Protein, Total 6.7 g/dL (5.8-8.1); Sodium 135 mmol/L (136-145)
[2021-10-30] MEDS ORDERED: Cefepime 2 GM VIAL ONE (09:12)
[2021-10-30] MEDS ORDERED: Dextrose 50% Abboject 50 ML SYRINGE SLOW IVP PRN (09:40)
[2021-10-30] MEDS ORDERED: Dextrose 5% in Water 1,000 ML IV PRN (09:40)
[2021-10-30] MEDS ORDERED: Acetaminophen 325 MG TAB PO PRN (09:40)
[2021-10-30] MEDS ORDERED: Ondansetron PF 4 MG/2 ML Vial IVP PRN (09:40)
[2021-10-30] MEDS ORDERED: Vancomycin 1 GM/200 ML BAG ONE (10:12)
[2021-10-30 10:36] LABS: SARS-CoV-2 NAA Rapid Test Not Detected (NotDetected)
[2021-10-30 10:37] LABS: Troponin I 0.102 ng/mL (< 0.028)
[2021-10-30] MEDS ORDERED: EPOETIN ALFA-EPBX (ESRD) 10,000 UNIT/ML VIAL SC SCH (12:00)
[2021-10-30] MEDS ORDERED: Pregabalin 50 MG CAP PO SCH (14:00)
[2021-10-30] MEDS: Icosapent Ethyl 1 GM CAPSULE PO SCH (16:31)
[2021-10-30] MEDS: HumaLOG 300 UNITS/3 ML VIAL SC PRN (16:54)
[2021-10-30] MEDS: Atorvastatin Calcium 40 MG TAB PO SCH (20:38)
[2021-10-31] MEDS ORDERED: hydrALAZINE 20 MG/ML VIAL SLOW IVP PRN (01:36)
[2021-10-31] MEDS ORDERED: Labetalol HCl 100 MG/20 ML VIAL SLOW IVP PRN (01:36)
[2021-10-31] MEDS: HumaLOG 300 UNITS/3 ML VIAL SC PRN ×2 (04:19→16:04)
[2021-10-31 05:23] LABS: #Eosinphils 0.1 thou/uL (0.0-0.7); #Lymphocytes 1.1 thou/uL (1.20-3.40); #Monocytes 1.1 thou/uL (0.11-0.59); #Neutrophils 6.3 thou/uL (1.40-6.50); %Basophils 0.2 % (0.0-1.0); %Eosinophils 1.6 % (0.0-10.0); %Lymphocytes 13.2 % (21.0-51.0); %Monocytes 12.2 % (0.0-10.0); %Neutrophils 72.8 % (42.0-75.0); Hemoglobin 7.6 g/dL (12.0-16.0); Mean Corpuscular HGB CONC 33.2 g/dL (32.0-36.0); Mean Corpuscular Hemoglobin 31.9 pg (27.0-31.0); Mean Corpuscular Volume 96.2 fL (78.0-98.0); Mean Platelet Volume 11.1 fL (7.4-10.4); Platelet Count 52 thou/uL (130-400); RBC Distribution Width 14.2 % (11.5-14.5); Red Blood Cell (RBC) Count 2.39 mill/uL (4.20-5.40); White Blood Cell (WBC) Count 8.7 thou/uL (4.8-10.8)
[2021-10-31 05:41] LABS: ALT (SGPT) 56 U/L (8-55); AST (SGOT) 36 U/L (5-34); Albumin 3.1 g/dL (3.4-4.8); Alkaline Phosphatase 144 U/L (40-110); Anion Gap 31 mmol/L (10-20); BUN (Urea Nitrogen) 75 mg/dL (9.8-20.1); Bilirubin, Total 0.3 mg/dL (0.2-1.2); Calc. Creatinine Clearance 12 mL/min (70-130); Calcium 7.5 mg/dL (7.8-10.44); Carbon Dioxide 15 mmol/L (23-31); Chloride 97 mmol/L (98-107); Globulin 2.4 g/dL (2.4-3.5); Glucose 313 mg/dL (80-115); Potassium 5.7 mmol/L (3.5-5.1); Protein, Total 5.5 g/dL (5.8-8.1); Sodium 137 mmol/L (136-145)
[2021-10-31] MEDS: Icosapent Ethyl 1 GM CAPSULE PO SCH ×2 (08:03→16:03)
[2021-10-31] MEDS ORDERED: Heparin 10,000 UNITS/ 10 ML VIAL ONE (08:23)
[2021-10-31] MEDS ORDERED: Zinc Sulfate 220 MG CAP PO SCH (09:00)
[2021-10-31] MEDS ORDERED: LACTINEX 1 TAB PO SCH (09:00)
[2021-10-31] MEDS ORDERED: Aspirin 81 mg Enteric Coated Tablet PO SCH (09:00)
[2021-10-31] MEDS ORDERED: Cholecalciferol (Vitamin D3) 400 UNITS TAB PO SCH (09:00)
[2021-10-31] MEDS ORDERED: Ascorbic Acid 500 mg Chewable Tablet PO SCH (09:00)
[2021-10-31 11:43] VITALS: BMI 24.5
[2021-10-31] MEDS ORDERED: FLU VACC QS2021-22(65YR UP)/PF 240 MCG/0.7 ML SYRINGE IM ONE (12:30)
[2021-10-31 15:59] LABS: Hemoglobin 8.3 g/dL (12.0-16.0); Mean Corpuscular HGB CONC 32.5 g/dL (32.0-36.0); Mean Corpuscular Hemoglobin 31.9 pg (27.0-31.0); Mean Corpuscular Volume 98.1 fL (78.0-98.0); Mean Platelet Volume 10.5 fL (7.4-10.4); Platelet Count 47 thou/uL (130-400); RBC Distribution Width 14.2 % (11.5-14.5); White Blood Cell (WBC) Count 9.8 thou/uL (4.8-10.8)
[2021-10-31 16:43] LABS: ALT (SGPT) 53 U/L (8-55); AST (SGOT) 38 U/L (5-34); Alkaline Phosphatase 140 U/L (40-110); Anion Gap 20 mmol/L (10-20); BUN (Urea Nitrogen) 23 mg/dL (9.8-20.1); Bilirubin, Total 0.4 mg/dL (0.2-1.2); Calc. Creatinine Clearance 30 mL/min (70-130); Calcium 7.8 mg/dL (7.8-10.44); Carbon Dioxide 24 mmol/L (23-31); Chloride 100 mmol/L (98-107); Globulin 2.5 g/dL (2.4-3.5); Glucose 211 mg/dL (80-115); Potassium 3.8 mmol/L (3.5-5.1); Protein, Total 5.5 g/dL (5.8-8.1); Sodium 140 mmol/L (136-145)
[2021-10-31] MEDS ORDERED: Amlodipine 10 MG TAB PO SCH (16:45)
[2021-10-31] MEDS: Atorvastatin Calcium 40 MG TAB PO SCH (21:00)
[2021-10-31] MEDS ORDERED: Lantus 1000 UNITS/10 ML VIAL SC SCH (21:00)
[2021-10-31 21:24] VITALS: BP 150/67; TEMP 98.9
== END 2021-10-31 21:20 ==
LOC: ERS 07:11 → ERHOLD 09:45 → 2SW 10:57
PROVIDERS: ADMIT Hospitalist; ATTEND Internal Medicine
DX: E11.649 Type 2 diabetes mellitus with hypoglycemia without coma (principal); G93.49 Other encephalopathy; E87.5 Hyperkalemia; M86.671 Other chronic osteomyelitis, right ankle and foot; J18.9 Pneumonia, unspecified organism; T68.XXXA Hypothermia, initial encounter; I10 Essential (primary) hypertension; E11.21 Type 2 diabetes mellitus with diabetic nephropathy; N18.6 End stage renal disease; N17.0 Acute kidney failure with tubular necrosis; D63.1 Anemia in chronic kidney disease; C91.10 Chronic lymphocytic leukemia of B-cell type not having achieved remission; C49.A0 Gastrointestinal stromal tumor, unspecified site; E78.5 Hyperlipidemia, unspecified; I25.10 Atherosclerotic heart disease of native coronary artery without angina pectoris; E11.51 Type 2 diabetes mellitus with diabetic peripheral angiopathy without gangrene; Z86.16 Personal history of COVID-19; Z79.4 Long term (current) use of insulin; Z79.82 Long term (current) use of aspirin; Z79.899 Other long term (current) drug therapy; Z88.8 Allergy status to other drugs, medicaments and biological substances; Z91.040 Latex allergy status; Z89.411 Acquired absence of right great toe; Z89.421 Acquired absence of other right toe(s); Z90.49 Acquired absence of other specified parts of digestive tract; Z99.2 Dependence on renal dialysis; Z20.822 Contact with and (suspected) exposure to COVID-19
CPT/HCPCS: 71045; 80053 ×3; 82553; 82962 ×2; 83605; 83735; 84100; 84484 ×2; 85025 ×2; 85027; 87040; 93005; 96365; 96375; 97139 ×3; 99285; Q5105; U0002; 36415; 36416; 96372; G0378; J0360; J0692; J1644; J1815; J1956; J3370